=== PATIENT | female | born 1995 | race Two or more races ===

== ENCOUNTER 2022-02-02 08:30 | Observation (INO) | payer MEDICAID, OTHER ==
[~2022-02-02] VITALS: Ht 154.9 cm; Wt 76.7 kg
[2022-02-02] MEDS ORDERED: PNV1TABL76 PO (12:20)
== END 2022-02-02 12:30 | disposition home or self-care (01) ==
LOC: EDBD 08:30 → 8 EST LDRP 08:30
PROVIDERS: ADMIT Obstetrics & Gynecology; ATTEND Obstetrics & Gynecology
DX: O42.913 Preterm premature rupture of membranes, unspecified as to length of time between rupture and onset of labor, third trimester (principal); Z3A.36 36 weeks gestation of pregnancy
CPT/HCPCS: 59025; 76815; 76818; G0378; 99281

== ENCOUNTER 2022-02-13 22:28 | Observation (INO) | payer OTHER ==
[~2022-02-13] VITALS: Ht 152.4 cm; Wt 58.5 kg
[~2022-02-13 22:28] MED LIST: PNV1TABL76 PO
== END 2022-02-13 23:30 | disposition home or self-care (01) ==
LOC: 8 EST LDRP 22:28
PROVIDERS: ADMIT Obstetrics & Gynecology; ATTEND Obstetrics & Gynecology
DX: O62.9 Abnormality of forces of labor, unspecified (principal); O99.891 Other specified diseases and conditions complicating pregnancy; M54.50 Low back pain, unspecified; R10.9 Unspecified abdominal pain; O24.410 Gestational diabetes mellitus in pregnancy, diet controlled; Z3A.38 38 weeks gestation of pregnancy
CPT/HCPCS: 59025; G0378; 99281; G0379

== ENCOUNTER 2022-02-20 18:05 | Inpatient (IN) | payer OTHER ==
[~2022-02-20] VITALS: Ht 154.9 cm; Wt 78.0 kg
[2022-02-20] MEDS ORDERED: FERR-71 MT (19:17)
[2022-02-20] MEDS ORDERED: MISOPROSTOL 100MCG TABLET VG SCH (19:45)
[2022-02-20] MEDS ORDERED: BUTORPHANOL TARTRATE 2 MG/ML VIAL IV PRN (19:45)
[2022-02-20] MEDS ORDERED: METHYLERGONOVINE MALEATE 0.2 MG/ML IM PRN (19:45)
[2022-02-20] MEDS ORDERED: CARBOPROST TROMETHAMINE 250 MCG/ML AMPUL IM PRN (19:45)
[2022-02-20] MEDS ORDERED: LIDOCAINE HCL 1% 30ML VIAL (10MG/ML) INFIL NR (19:45)
[2022-02-20] MEDS ORDERED: NALOXONE HCL 0.4 MG/ML 1ML VIAL IM PRN (19:45)
[2022-02-20 20:45] LABS: BASOPHILS % 0.2 % (0.0-2.0); EOSINOPHILS % 0.4 % (0.0-5.0); HEMATOCRIT. 29.4 % (36.0-48.0); HEMOGLOBIN. 9.2 g/dL (12.0-16.0); LYMPHOCYTES % 17.8 % (20.0-50.0); MEAN CORPUSCULAR HEMOGLOBIN 22.6 pg (28.0-32.0); MEAN CORPUSCULAR VOLUME 72.3 fL (81.0-99.0); MEAN PLATELET VOLUME 11.2 fl (7.4-10.4); MONOCYTES % 5.4 % (2.0-8.0); NEUTROPHILS % 76.2 % (40.0-76.0); PLATELET 225 x1000/uL (130-400); RED BLOOD CELL COUNT 4.06 mill/uL (4.2-5.4); RED CELL DISTRIBUTION WIDTH 15.7 % (11.6-14.6)
[2022-02-20 20:46] LABS: INR 0.9; PROTHROMBIN TIME 9.7 sec (9.6-11.0)
[2022-02-20] MEDS: LACTATED RINGERS 1,000 ML IV SCH ×2 (20:46→22:29)
[2022-02-20 20:48] LABS: CHLORIDE 109 mEq/L (98-107)
[2022-02-20 20:54] LABS: CLARITY URINE CLEAR (CLEAR); COLOR URINE YELLOW (YELLOW); KETONES URINE NEGATIVE (NEGATIVE); LEUKOCYTE ESTERASE URINE NEGATIVE (NEGATIVE); NITRITE URINE NEGATIVE (NEGATIVE); OCCULT BLOOD URINE 1+ (NEGATIVE); PH URINE 6.5 (4.5-8.0); PROTEIN URINE 1+ (NEGATIVE); UROBILINOGEN URINE 0.2 E.U./dL (0.2-1.0)
[2022-02-20 21:06] LABS: *AMPHETAMINES SCREEN URINE NEGATIVE (NEGATIVE); *BARBITURATES SCREEN URINE NEGATIVE (NEGATIVE); *BENZODIAZEPINES SCREEN URINE NEGATIVE (NEGATIVE); *COCAINE SCREEN URINE NEGATIVE (NEGATIVE); CANNABINOID URINE SCREEN NEGATIVE (NEGATIVE); METHADONE URINE SCREEN NEGATIVE (NEGATIVE); OPIATES URINE SCREEN NEGATIVE (NEGATIVE); PHENCYCLIDINE URINE SCREEN NEGATIVE (NEGATIVE)
[2022-02-20] MEDS ORDERED: LIDOCAINE HCL 2%/EPINEPHRINE 1:100,000 20 ML VIAL INFIL ONE (22:00)
[2022-02-20] MEDS ORDERED: ROPIVACAINE HCL/PF EPIDURAL 200 ML EPI ONE (22:27)
[2022-02-20] MEDS ORDERED: FENTANYL CITRATE/PF 50MCG/ML 2ML VIAL ONE (22:27)
[2022-02-20] MEDS ORDERED: ROPIVACAINE HCL/PF EPIDURAL 200 ML EPI SCH (22:30)
[2022-02-21] MEDS: LACTATED RINGERS 1,000 ML IV SCH ×2 (02:45→05:05)
[2022-02-21] MEDS: OXYTOCIN 30 UNITS/500ML NS PMX 500 ML IV SCH ×2 (06:18→07:23)
[2022-02-21] MEDS ORDERED: RHO(D) IMMUNE GLOBULIN 300 MCG/SYR IM PRN (06:45)
[2022-02-21] MEDS ORDERED: IBUPROFEN 400MG TABLET PO PRN (06:45)
[2022-02-21 09:15] VITALS: BP 132/61
[2022-02-21] MEDS: PRENATAL VIT/FE FUMARATE/FA TABLET PO SCH (09:46)
[2022-02-21] MEDS: IBUPROFEN 800MG TABLET PO PRN ×2 (09:46→20:33)
[2022-02-21 14:00] VITALS: BP 125/70
[2022-02-21 20:00] VITALS: BP 124/59
[2022-02-22 04:00] VITALS: BP 113/66
[2022-02-22 05:52] LABS: BASOPHILS % 0.2 % (0.0-2.0); EOSINOPHILS % 0.7 % (0.0-5.0); HEMATOCRIT. 25.9 % (36.0-48.0); HEMOGLOBIN. 8.1 g/dL (12.0-16.0); LYMPHOCYTES % 17.8 % (20.0-50.0); MEAN CORPUSCULAR HEMOGLOBIN 22.9 pg (28.0-32.0); MEAN CORPUSCULAR VOLUME 73.1 fL (81.0-99.0); MONOCYTES % 5.4 % (2.0-8.0); NEUTROPHILS % 75.9 % (40.0-76.0); PLATELET 186 x1000/uL (130-400); RED BLOOD CELL COUNT 3.54 mill/uL (4.2-5.4); RED CELL DISTRIBUTION WIDTH 15.3 % (11.6-14.6)
[2022-02-22 07:45] VITALS: BP 100/58
[2022-02-22] MEDS: FERROUS SULFATE 325MG TABLET PO SCH ×2 (09:16→13:09)
[2022-02-22] MEDS: PRENATAL VIT/FE FUMARATE/FA TABLET PO SCH (09:16)
[2022-02-22] MEDS: IBUPROFEN 800MG TABLET PO PRN (13:09)
[2022-02-22 16:00] VITALS: BP 112/68
== END 2022-02-22 19:50 | disposition home or self-care (01) | DRG 560 ==
LOC: OBSVTOIN 18:05 → 8 EST LDRP 18:05 → 8EST 02-21 13:13
PROVIDERS: ADMIT Obstetrics & Gynecology; ATTEND Obstetrics & Gynecology
PROC: 10E0XZZ Delivery of Products of Conception, External Approach (ICD-10-PCS; principal; 2022-02-21)
PROC: 3E0R3BZ Introduction of Anesthetic Agent into Spinal Canal, Percutaneous Approach (ICD-10-PCS; 2022-02-21)
PROC: 00HU33Z Insertion of Infusion Device into Spinal Canal, Percutaneous Approach (ICD-10-PCS; 2022-02-21)
DX: O24.420 Gestational diabetes mellitus in childbirth, diet controlled (principal); Z37.0 Single live birth; Z20.822 Contact with and (suspected) exposure to COVID-19; Z3A.39 39 weeks gestation of pregnancy
CPT/HCPCS: 36415; 76805; 76818; 80053; 80305; 81003; 82962; 85025; 86592; 86703; 86762; 86850; 86900; 87340; 87426; 99281; G0378; J2795; J3010; J3490; A4315; J2590